=== PATIENT | male | born 1960 | race Hispanic/Latino ===

== ENCOUNTER 2022-02-24 22:18 | Emergency (ER) | payer OTHER, SELFPAY ==
[2022-02-24 22:23] VITALS: BP 122/79; PULSE 61; RESP 14; O2SAT 100
--- NOTE | 2022-02-24 22:46 | ECG_ITS ---
Measurements Intervals [place] Rate: 56 P: 64 MI: 249 QRS: -19 QRSD: 123 T: 9 QT: 483 QTc: 470 Interpretive Statements SINUS BRADYCARDIA WITH FIRST DEGREE AV BLOCK INTRAVENTRICULAR CONDUCTION DELAY DELAYED PRECORDIAL R/S TRANSITION PROLONGED QT INTERVAL BASELINE ARTIFACT- I, III, AVL ABNORMAL ECG Electronically Signed On 02-25-2022 6:36:12 CDT by Stephen White D.O.
--- NOTE | 2022-02-24 23:13 | ED.DIZZY ---
HPI - Dizziness General Chief Complaint: Syncope Stated Complaint: HYPOTENSIVE, SYNCOPAL Time Seen by Provider: 02/24/22 22:25 Source: patient Mode of arrival: EMS Limitations: no limitations History of Present Illness HPI Narrative: This is 61 year old male who presents for evaluation of lightheadedness. Patient states this morning he has dental implants placed. Around 3 pm he started having pain from his procedure so he took a hydrocodone. He started to feel better so he ate. HE reports a several hours later he took one his antibiotic pills. He developed abdominal cramping after taking this medication and he developed lightheadedness. He states he did not feel well and he felt fainty so he checked his vitals. He found his SBP was 80s. He started to eat chips and drink more fluids. He started to feel better. He states he then had another episode in which he felt lightheaded. His BP was low again. He states he sat down and he felt like he was going to pass out. He states he did not loss complete consciousness because he could here his talking to 911 entire time. He states he feels fine now. He denies chest pain, sob, palpitations, nausea, vomiting, diarrhea. He denies abdominal pain now. Related Data Home Medications Medication Instructions Recorded Confirmed acetaminophen 500 mg tablet 500 mg PO Q6H PRN 12/01/21 amlodipine 10 mg tablet 10 mg PO DAILY 12/01/21 atorvastatin 20 mg tablet 20 mg PO DAILY 12/01/21 carboxymethylcellulose sodium 1 % 1 drp EACH EYE BID 12/01/21 eye gel in a dropperette cetirizine 10 mg capsule 10 mg PO DAILY PRN 12/01/21 chlorthalidone 25 mg tablet 25 mg PO DAILY 12/01/21 diclofenac sodium 1 % topical gel 2 g TOPICAL QID 12/01/21 docusate sodium 100 mg capsule 100 mg PO DAILY 12/01/21 doxazosin 2 mg tablet 2 mg PO DAILY 12/01/21 famotidine 20 mg tablet 20 mg PO DAILY 12/01/21 montelukast 10 mg tablet 10 mg PO DAILY 12/01/21 omega-3 fatty acids [Fish Oil] PO 12/01/21 Allergies Allergy/AdvReac Type Severity Reaction Status Date / Time No Known Allergies Allergy Verified 02/24/22 22:32 Review of Systems Review of Systems: All systems reviewed & are unremarkable except as noted in HPI and below Constitutional: Constitutional: Denies chills and Denies fever(s) ENT: Denies nasal congestion Cardiovascular: Cardiovascular: Denies chest pain and Denies rapid heart rate Respiratory: Respiratory: Denies cough and Denies dyspnea Gastrointestinal: Gastrointestinal: Reports abdominal pain, Denies nausea and Denies vomiting Musculoskeletal: Musculoskeletal: Denies back pain [facility] Social History Social History (Updated 12/01/21 @ 08:20 by Merced Bustos) Smoking status: Former smoker Alcohol intake: never Exam Narrative: GENERAL: Well-appearing, well-nourished, and in no acute distress. HEAD: Normocephalic, atraumatic EYES: PERRLA and EOMI, conjunctiva clear without discharge THROAT:Mucous membranes moist, Oropharynx normal without erythema, exudate, peritonsillar swelling or fluctuance NECK: Supple, without lymphadenopathy or mass RESPIRATORY: No respiratory distress, Airway patent, Respirations non-labored, Clear to auscultation without rales, rhonchi or wheeze HEART: Regular rate and rhythm. No murmur heard. Normal peripheral pulses. ABDOMEN: Soft, nontender, nondistended, normal active bowel sounds. No masses. No rebound or guarding, No organomegaly. EXTREMITIES: No edema, normal strength with full range of motion. SKIN: Warm, dry, normal color without rash NEURO: Alert and oriented x3. CN 2-12 grossly intact. No focal deficits. PSYCH: Normal mood and affect. Course Reevaluation(s) Reevaluation #1: PAtient states he feels fine. He was given 1 L bolus NS given low sodium. He was also given 40 meq potassium. PAtient is on strict diet and I discussed he may not be getting enough K in. He is also on diuretic. He will need to talk to PCP abo
[2022-02-24 23:27] LABS: Basophils Percent Auto 0.1 % (0.2-1.2); Eosinophils Absolute Auto 0.1 K/mm3 (0-0.3); Eosinophils Percent Auto 0.5 % (0-4.4); Hematocrit 42.6 % (42.0-52.0); Hemoglobin 14.5 g/dL (14.0-18.0); Immature Granulocyte Absolute 0.04 K/mm3 (0.00-0.031); Immature Granulocyte Percent A 0.3 % (0-0.5); Lymphocytes Absolute Auto 1.44 K/mm3 (0.9-3.2); Lymphocytes Percent Auto 10.2 % (18.3-44.2); Mean Corpuscular Hemoglobin 29.2 pg (26-34); Mean Corpuscular Volume 85.7 fl (80-100); Mean Platelet Volume 9.2 fl (7.4-10.4); Monocytes Absolute Auto 1.1 K/mm3 (0.1-0.6); Monocytes Percent Auto 7.6 % (2.6-8.5); Neutrophils Absolute Auto 11.5 K/mm3 (1.3-6.7); Neutrophils Percent Auto 81.3 % (45.5-73.1); Platelet Count Result 213 k/mm3 (150-375); Red Blood Count 4.97 M/mm3 (4.6-6.20); Red Cell Distribution Width 13.9 % (11.5-14.5); White Blood Count 14.1 K/mm3 (4.5-10.0)
[2022-02-24 23:35] LABS: INR 1.1; Prothrombin Time 13.7 Seconds (11.1-14.7)
[2022-02-24 23:36] LABS: Alanine Aminotransferase 23 U/L (6-50); Albumin Level 4.3 g/dL (3.5-5.1); Alkaline Phosphatase 52 U/L (38-126); Anion Gap 9 mmol/L (8-16); Aspartate Amino Transferase 33 U/L (17-59); Bilirubin,Total 0.6 mg/dL (0.2-1.3); Blood Urea Nitrogen 14 mg/dL (9-20); Calcium 8.9 mg/dL (8.4-10.2); Carbon Dioxide 33 mmol/L (22-30); Chloride 90 mmol/L (98-107); Estimated CRCL calculation 89 ml/min; Estimated Glomerular Filt Rate > 60; Glucose 118 mg/dL (65-110); Magnesium 1.8 mg/dL (1.6-2.3); Partial Thromboplastin Time 36.5 SECONDS (22.3-36.8); Potassium 3.1 mmol/L (3.4-5.0); Sodium 132 mmol/L (137-145)
[2022-02-24 23:47] LABS: Troponin I < 0.012 ng/mL (0.000-0.034)
[2022-02-24] MEDS: SODIUM CHLORIDE 0.9% IV 1,000 ML 999 ML IV CONT (23:56)
[2022-02-25 00:11] VITALS: BP 138/83; PULSE 58
[2022-02-25 00:12] VITALS: BP 128/84; PULSE 60
[2022-02-25 00:15] VITALS: BP 133/81; PULSE 64
[2022-02-25] MEDS: POTASSIUM CHLORIDE 20 MEQ TABLET 40 MEQ PO (00:29)
[2022-02-25 00:35] LABS: Appearance Urine Clear (Clear); Bilirubin Urine Negative (Negative); Color Urine Yellow (Yellow); Glucose Urine UA Negative (Negative); Ketones Urine Trace mg/dL (Negative); Leukocyte Esterase Ur Negative LEU/UL (Negative); Nitrate Urine Negative (Negative); Protein Urine 1+ mg/dL (Negative); Specific Grav Ur 1.025 (1.001-1.035); Urobilinogen Urine 0.2 mg/dL (<2.0); pH Urine 6.5 (5.0-9.0)
[2022-02-25 00:41] LABS: Add Urine Microscopic? YES; Blood Urine Trace (Negative)
[2022-02-25 00:43] LABS: Bacteria Urine Trace /hpf; Mucus Urine Rare /lpf; RBC Urine 0-2 /hpf (0-2); WBC Urine 0-3 /hpf
[2022-02-25 00:58] VITALS: BP 127/76; PULSE 67; RESP 18; O2SAT 100
== END 2022-02-25 01:00 | disposition home or self-care (01) ==
PROVIDERS: Emergency Provider General Practice
DX: R55 Syncope and collapse (principal); E87.6 Hypokalemia; E86.0 Dehydration; Z87.891 Personal history of nicotine dependence
CPT/HCPCS: 36415; 80053; 81001; 83735; 84484; 85025; 85610; 85730; 93005; 96360; 99284; A9270; J7030

== ENCOUNTER 2023-03-03 11:53 | Emergency (ER) | payer OTHER, SELFPAY ==
--- NOTE | ~2023-03-03 | XR_ITS ---
EXAMINATION: XR chest 2V 03/03/2023 15:05 INDICATION: Cough and shortness of breath. Chest congestion. PROCEDURE: 2 view chest COMPARISON: No prior studies for comparison. FINDINGS: The lungs are clear. The cardiomediastinal silhouette is within normal limits. There are no pleural effusions. There is no pneumothorax suspected. IMPRESSION: 1: NO ACUTE CARDIOPULMONARY DISEASE. Reviewed, dictated and finalized at location B.
[2023-03-03 12:04] VITALS: BP 133/78; PULSE 70; RESP 18; TEMP 36.2; O2SAT 100
[2023-03-03 16:41] LABS: Influenza A QL RT-PCR Negative (Negative); Influenza B QL RT-PCR Negative (Negative); RSV RNA, RT-PCR Negative (Negative); SARS-CoV-2 RNA PCR Negative (Negative)
--- NOTE | 2023-03-03 17:34 | ED.GENADULT ---
HPI - General Adult General Chief complaint: Upper Respiratory Infection Stated complaint: upper respiratory infection Time Seen by Provider: 03/03/23 14:51 History of Present Illness HPI narrative: 62-year-old male presented to the emergency department for evaluation of increased cough and congestion. Patient was initially started on antibiotics on 02/15 and then was restarted on antibiotics on 02/26. Upon arrival to the ED patient states he is still having some cough and congestion. Patient felt the last 2 days he was having some improvement. Patient's is also having some cough and congestive symptoms. Related Data Home Medications Medication Instructions Recorded Confirmed acetaminophen 500 mg tablet 500 mg PO Q6H PRN 12/01/21 (Tylenol Extra Strength) amlodipine 10 mg tablet (Norvasc) 10 mg PO DAILY 12/01/21 atorvastatin 20 mg tablet (Lipitor) 20 mg PO DAILY 12/01/21 carboxymethylcellulose sodium 1 % 1 drp EACH EYE BID 12/01/21 eye gel in a dropperette (Refresh Celluvisc) cetirizine 10 mg capsule (Zyrtec) 10 mg PO DAILY PRN 12/01/21 chlorthalidone 25 mg tablet 25 mg PO DAILY 12/01/21 diclofenac sodium 1 % topical gel 2 g topical QID 12/01/21 docusate sodium 100 mg capsule 100 mg PO DAILY 12/01/21 (Colace) doxazosin 2 mg tablet 2 mg PO DAILY 12/01/21 famotidine 20 mg tablet 20 mg PO DAILY 12/01/21 montelukast 10 mg tablet 10 mg PO DAILY 12/01/21 (Singulair) omega-3 fatty acids [Fish Oil] PO 12/01/21 Allergies Allergy/AdvReac Type Severity Reaction Status Date / Time Penicillins Allergy Hypotension Verified 03/03/23 14:46 Review of Systems Review of Systems: All systems reviewed & are unremarkable except as noted in HPI and below PMFSH Social History Social History (Updated 12/01/21 @ 08:20 by Merced Bustos) Smoking status: Former smoker Alcohol intake: never Exam Narrative: APPEARANCE: Well appearing, no pain, no distress, well-nourished. HEAD: normocephalic, atraumatic. EYES: PERRLA/EOMI, conjunctivae clear. NOSE: Normal no drainage EARS:TMS clear with good light reflex. THROAT: Pharynx clear, no exudate. NECK: Supple. No adenopathy, no masses. RESPIRATORY: Airway patent, respirations nonlabored. Clear to auscultation bilaterally, no rales, rhonchi, wheezing. CARDIOVASCULAR: Regular rate and rhythm without murmurs rubs or gallops. ABDOMINAL: Soft, nontender, nondistended, normal bowel sounds MUSCULOSKELETAL: Moves all extremities. Strength/ROM intact, No edema, No calf tenderness. NEURO: Alert. Cranial nerves II through XII intact. Good gait. Good coordination SKIN: Warm, dry. Normal Color PSYCHIATRIC: Normal affect/mood. Course Course Emergency Course: Patient was restarted on doxycycline. Patient does have remaining Tessalon Perles. Patient was prescribed in a butyryl inhaler and spacer. Patient was encouraged on close follow-up with his primary care physician. All questions concerns were addressed. Patient and are comfortable with the plan for discharge and close follow-up. Vital Signs Vital signs: Vital Signs Temperature 97.2 F L 03/03/23 12:04 Pulse Rate 70 03/03/23 12:04 Respiratory Rate 18 03/03/23 12:04 Blood Pressure 133/78 03/03/23 12:04 Pulse Oximetry 100 03/03/23 12:04 Oxygen Delivery Room Air 03/03/23 12:04 Temperature 97.2 F L 03/03/23 12:04 Pulse Rate 89 03/03/23 17:52 Respiratory Rate 20 03/03/23 17:52 Blood Pressure 133/78 03/03/23 12:04 Pulse Oximetry 100 03/03/23 17:52 Oxygen Delivery Room Air 03/03/23 12:04 Medical Decision Making Vital Signs Vital Signs: Vital Signs Temperature 97.2 F L 03/03/23 12:04 Pulse Rate 70 03/03/23 12:04 Respiratory Rate 18 03/03/23 12:04 Blood Pressure 133/78 03/03/23 12:04 Pulse Oximetry 100 03/03/23 12:04 Oxygen Delivery Room Air 03/03/23 12:04 Temperature 97.2 F L 03/03/23 12:04 Pulse Rate 89 03/03/23 17:52 Resp
[2023-03-03] MEDS: LEVALBUTEROL NEB 1.25 MG/3 ML 2.5 MG INHALATION (17:44)
[2023-03-03 17:52] VITALS: PULSE 89; RESP 20; O2SAT 100
== END 2023-03-03 18:19 | disposition home or self-care (01) ==
PROVIDERS: Emergency Provider Emergency Medicine
DX: R05.9 Cough, unspecified (principal); Z20.822 Contact with and (suspected) exposure to COVID-19; Z87.891 Personal history of nicotine dependence
CPT/HCPCS: 71046; 87637; 99283